=== PATIENT | male | born 1965 | race Caucasian/White ===

== ENCOUNTER 2017-06-12 19:28 | Emergency (ER) | payer MEDICAID ==
--- NOTE | 2017-06-12 19:59 | EDM.PDOC ---
ED HPI GENERAL MEDICAL PROBLEM - General Chief Complaint: General Stated Complaint: suture site lump Time Seen by Provider: 06/12/17 19:35 Source of Information: Reports: Patient History Limitations: Reports: No Limitations - History of Present Illness INITIAL COMMENTS - FREE TEXT/NARRATIVE: patient was injured by machinery at work on 06/07/17. Sutures and x-ray performed at [facility]. Placed on Keflex. He presents today with a lump to the arm. No redness, no fever, no inflammation. He does state that it is painful. Began swelling two days ago, today it became painful. Onset: Gradual Location: Reports: Upper Extremity, Right Quality: Reports: Ache, Pressure Severity: Moderate Improves with: Reports: None Worsens with: Reports: None Associated Symptoms: Reports: No Other Symptoms Right Arm Pain Score (Numeric/FACES): 6 - Related Data Allergies Allergy/AdvReac Type Severity Reaction Status Date / Time No Known Allergies Allergy Verified 06/12/17 19:35 Home Meds: Home Meds Cephalexin [Cephalexin] 1 tab PO TID 06/12/17 [History] Past Medical History - Past Health History Medical/Surgical History: Denies Medical/Surgical History Social & Family History - Tobacco Use Smoking Status *Q: Current Every Day Smoker Years of Tobacco use: 35 Packs/Tins Daily: 1 ED ROS GENERAL - Review of Systems Review Of Systems: See Below Constitutional: Reports: No Symptoms HEENT: Reports: No Symptoms Respiratory: Reports: No Symptoms Cardiovascular: Reports: No Symptoms Endocrine: Reports: No Symptoms GI/Abdominal: Reports: No Symptoms : Reports: No Symptoms Musculoskeletal: Reports: No Symptoms Skin: Reports: No Symptoms Neurological: Reports: No Symptoms Psychiatric: Reports: No Symptoms Hematologic/Lymphatic: Reports: No Symptoms Immunologic: Reports: No Symptoms ED EXAM, GENERAL - Physical Exam Exam: See Below Exam Limited By: No Limitations General Appearance: Alert, WD/WN, No Apparent Distress Respiratory/Chest: No Respiratory Distress, Lungs Clear Cardiovascular: Normal Peripheral Pulses, Regular Rate, Rhythm Extremities: Normal Inspection, Normal Range of Motion, No Pedal Edema. No: Increased Warmth, Redness Psychiatric: Normal Affect, Normal Mood Skin Exam: Wound/Incision (sutured laceration to right forearm. Sutures intact , large protrusion subdermally, no redness, no warmth) Course - Vital Signs Last Recorded V/S: Last Vital Signs Temp 35.7 C 06/12/17 19:36 Pulse 84 06/12/17 19:36 Resp 16 06/12/17 19:36 BP 131/71 06/12/17 19:36 Pulse Ox 99 06/12/17 19:36 - Orders/Labs/Meds Orders: Active Orders 24 hr Category Date Time Status Elbow 2V Rt [CR] Stat Exams 06/12/17 19:38 Ordered CULTURE WOUND + SMEAR [RM] Stat Lab 06/12/17 19:50 Uncollected - Re-Assessments/Exams Free Text/Narrative Re-Assessment/Exam: 06/12/17 20:16 Using sterile technique, the site was cleaned, draped, and an 11 blade scalpel used to agata the area. Serosanguinous fluid was released. Culture was obtained and sent to lab for evaluation. Patient tolerated without difficulty. Dressing applied. Skin intact. Departure - Departure Time of Disposition: 20:10 Disposition: Home, Self-Care 01 Condition: Good Clinical Impression: Spontaneous hematoma of forearm - Discharge Information Instructions: Wound Infection, [id number], Laceration Care, Adult, Easy-to- Read Forms: ED Department Discharge Additional Instructions: Follow up with your primary doctor for any other symptoms from your incision. You had a collection of fluid consisting of blood and inflammatory fluids that your body produces. It does not look infected at this time. A culture was obtained and we will notify you if the antibiotic you are on does not cover the bacteria you have Finish your whole course of antibiotic Continue to keep clean and dry Please call with any questions or concerns - Problem List & Annotations (1) Spontaneous hematoma of forearm SNOMED Code(s): 007193759 Code(s): R23.3 - SPONTANEOUS ECCHYMOSES Status: Acute Priority: Low - Problem List Review Problem List Initiated/Reviewed/Updated: Yes - My Orders Last 24 Hours: My Active Orders 06/12/17 19:38 Elbow 2V Rt [CR] Stat 06/12/17 19:50 CULTURE WOUND + SMEAR [RM] Stat - Assessment/Plan Last 24 Hours: My Active Orders 06/12/17 19:38 Elbow 2V Rt [CR] Stat 06/12/17 19:50 CULTURE WOUND + SMEAR [RM] Stat Assessment:: hematoma of forearm right Plan: Follow up with your primary doctor for any other symptoms from your incision. You had a collection of fluid consisting of blood and inflammatory fluids that your body produces. It does not look infected at this time. A culture was obtained and we will notify you if the antibiotic you are on does not cover the bacteria you have Finish your whole course of antibiotic Continue to keep clean and dry Please call with any questions or concerns
== END 2017-06-12 20:15 | disposition home or self-care (01) ==
LOC: VM.ED 19:28
DX: M79.81 Nontraumatic hematoma of soft tissue (principal)
CPT/HCPCS: 10140; 73070-RT; 87070; 87205; 99283; 99283-GF-25

== ENCOUNTER 2019-04-23 19:54 | Emergency (ER) | payer MEDICAID ==
[2019-04-23] MEDS ORDERED: Take Home: Amoxicillin 875 MG Tab, 2 Tab Pack PO ONE (20:23)
--- NOTE | 2019-04-24 07:39 | EDM.PDOC ---
ED HPI GENERAL MEDICAL PROBLEM - General Chief Complaint: ENT Problem Stated Complaint: Sore and ? foreign body in gum Time Seen by Provider: 04/23/19 20:20 Source of Information: Reports: Patient History Limitations: Reports: No Limitations - History of Present Illness INITIAL COMMENTS - FREE TEXT/NARRATIVE: Pt. presents to ER with complaints to pain to his R upper gums. Pt. states that he wears dentures and states that he has progressively been experiencing increased discomfort, redness, and swelling where his upper dentures are rubbing on his gums. He states that the redness and swelling increased significantly over the past several days. Denies any fever or chills. Onset: Today Location: Reports: Face Right upper gum Pain Score (Numeric/FACES): 8 - Related Data Allergies Allergy/AdvReac Type Severity Reaction Status Date / Time No Known Allergies Allergy Verified 04/23/19 20:33 Home Meds: Home Meds . [No Known Home Meds] 04/23/19 [History] Past Medical History - Past Health History Medical/Surgical History: Denies Medical/Surgical History - Past Surgical History HEENT Surgical History: Reports: Oral Surgery ED ROS GENERAL - Review of Systems Review Of Systems: See Below Constitutional: Reports: No Symptoms HEENT: Reports: Dental Pain Respiratory: Reports: No Symptoms Cardiovascular: Reports: No Symptoms Endocrine: Reports: No Symptoms GI/Abdominal: Reports: No Symptoms : Reports: No Symptoms Musculoskeletal: Reports: No Symptoms Skin: Reports: No Symptoms Neurological: Reports: No Symptoms Psychiatric: Reports: No Symptoms Hematologic/Lymphatic: Reports: No Symptoms Immunologic: Reports: No Symptoms ED EXAM, GENERAL - Physical Exam Exam: See Below Exam Limited By: No Limitations General Appearance: Alert, WD/WN, No Apparent Distress Throat/Mouth: Other (ulceration to R upper gums. Surrounding erythema noted to the area with no discharge. ) Head: Atraumatic, Normocephalic Course - Vital Signs Last Recorded V/S: Last Vital Signs Temp 37.1 C 04/23/19 20:00 Pulse 81 04/23/19 20:00 Resp 16 04/23/19 20:00 BP 105/68 04/23/19 20:00 Pulse Ox - Orders/Labs/Meds Meds: Medications Discontinued Medications Generic Name Dose Route Start Last Admin Trade Name Freq PRN Reason Stop Dose Admin Amoxicillin 1 packet 04/23/19 20:23 04/23/19 20:35 Take Home: Amoxicillin 875 Mg Tab, 2 Tab Pack PO 04/23/19 20:24 1 packet ONETIME ONE Administration Departure - Departure Time of Disposition: 20:40 Disposition: Home, Self-Care 01 Condition: Good Clinical Impression: Gum inflammation - Discharge Information Referrals: PCP,None [Primary Care Provider] - Forms: ED Department Discharge Additional Instructions: Follow-up with [facility] to have your dentures adjusted. Amoxicillin 875mg twice daily for 10 days Keep the dentures out of your mouth. Do not dig around in the gums with toothpicks. Ibuprofen 200mg 3 tablets every 6 hours for pain/swelling. - Problem List Review Problem List Initiated/Reviewed/Updated: Yes - Assessment/Plan Plan: Follow-up with [facility] to have your dentures adjusted. Amoxicillin 875mg twice daily for 10 days Keep the dentures out of your mouth. Do not dig around in the gums with toothpicks. Ibuprofen 200mg 3 tablets every 6 hours for pain/swelling.
== END 2019-04-23 20:40 | disposition home or self-care (01) ==
LOC: VM.ED 19:54
DX: K05.10 Chronic gingivitis, plaque induced (principal)
CPT/HCPCS: 99282; A9270-GY

== ENCOUNTER 2021-07-06 16:20 | Emergency (ER) | payer BC ==
[2021-07-06] MEDS ORDERED: Ibuprofen 200 MG Tab PO STA (16:36)
--- NOTE | 2021-07-06 16:42 | EDM.PDOC ---
ED [facility] GENERAL MEDICAL PROBLEM - General Chief Complaint: Upper Extremity Injury/Pain Stated Complaint: WRIST INJURY Time Seen by Provider: 07/06/21 16:37 Source of Information: Reports: Patient History Limitations: Reports: No Limitations - History of Present Illness INITIAL COMMENTS - FREE TEXT/NARRATIVE: Patient comes emergency department today with complaints of right knuckle pain on his right hand. The patient noticed about 2 weeks ago on his right knuckle of the third finger of the right hand at the MPJ he has some pain and swelling. He had no injury or trauma or breaks in the skin. The pain has gotten slowly worse over the past 2 weeks it is gotten more swollen and red. It is constant pain. Does not get better in the morning or worse during the day. He has had no fever or chills. He has had similar episodes to this in the past where it was an infection that started spontaneously. He has no fever or chills. No paresthesias of the right hand. He has not tried anything for pain. Right Hand Pain Score (Numeric/FACES): 10 - Related Data Allergies Allergy/AdvReac Type Severity Reaction Status Date / Time No Known Allergies Allergy Verified 07/06/21 16:39 Home Meds: Home Meds cephALEXin [Cephalexin] 500 mg PO QID #28 tablet 07/06/21 [Rx] Past Medical History - Past Health History Medical/Surgical History: Denies Medical/Surgical History - Past Surgical History HEENT Surgical History: Reports: Oral Surgery Review of Systems - Review of Systems Review Of Systems: Comprehensive ROS is negative, except as noted in HPI. 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 No other signs of infection or pathology. ). No: Normal Inspection (Examination of the right hand. At the right MPJ on the dorsum of the hand there is redness swelling warth. He has limited minimal flexion at that joint. Rest flexion and extension approriate. CMS otherwise normal. ) Psychiatric: Normal Affect, Normal Mood Skin Exam: Warm, Dry, Intact, Normal Color Course - Vital Signs Last Recorded V/S: Last Vital Signs Temp 99.3 F 07/06/21 16:25 Pulse 75 07/06/21 16:25 Resp 18 07/06/21 16:25 BP 131/83 07/06/21 16:25 Pulse Ox 98 07/06/21 16:25 - Orders/Labs/Meds Orders: Active Orders 24 hr Category Date Time Status Hand Comp Min 3V Rt [CR] Stat Exams 07/06/21 16:35 Taken Meds: Medications Discontinued Medications Generic Name Dose Route Start Last Admin Trade Name Alexander PRN Reason Stop Dose Admin Cephalexin 1 packet 07/06/21 17:38 07/06/21 17:46 Take Home: Cephalexin 500 Mg Cap, 4 Cap Pack PO 07/06/21 17:39 1 packet ONETIME ONE Administration Diphtheria/Tetanus/Acell Pertussis 0.5 ml 07/06/21 17:38 07/06/21 17:47 Diphtheria,Pertussis(Acell),Tetanus Vaccine 0.5 Ml Syringe IM 07/06/21 17:39 0.5 ml .ONCE ONE Administration Ibuprofen 600 mg 07/06/21 16:36 07/06/21 16:43 Ibuprofen 200 Mg Tab PO 07/06/21 16:37 600 mg NOW STA Administration - Radiology Interpretation Free Text/Narrative:: X-ray of the right hand initially reviewed extemporaneously by myself. Shows no acute fracture or dislocation. There is some generalized osteoarthritic changes. X-ray per radiology shows no evidence of acute fracture or dislocation. 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 Findings include joint space narrowing at the second and third MCP articulations chronic osteophyte formation arising from the dorsal aspect of the third digit with overlying soft tissue swelling. No erosive changes or AVN. REceived after the patient was discharged. - Re-Assessments/Exams Free Text/Narrative Re-Assessment/Exam: 07/06/21 I explained to the patient that I do not see any acute fracture he does have some chronic changes at the x-ray site at the same. He has multiple abrasions on his hand. My biggest concern at this time would be for the risk of infection. We will place him on Keflex 1 tablet p.o. 4 times daily for the next 7 days. If he is not improving follow-up with his primary care provider. This could be underlying acute arthritis although infection is my biggest concern at this time. Discharge directions as below are explained to the patient is comfortable this plan his questions are answered. Departure - Departure Time of Disposition: 17:39 Disposition: Home, Self-Care 01 Clinical Impression: Cellulitis of hand, right - Discharge Information Prescriptions: cephALEXin [Cephalexin] 500 mg PO QID #28 tablet Instructions: Cellulitis, Adult, [id number], Pain Medicine Instructions, [id number] Referrals: PCP,None [Primary Care Provider] - Forms: ED Department Discharge Additional Instructions: Tylenol and or Ibuprofen as needed for pain. Ice to the area on the hand as well. Cephalexin 1 capsule 4 times a day for the next 7 days. Starter pack from the ED given and RX sent to [facility]. Return to the ED if new or worsening symptoms. Follow up in the clinic in 1 week if not improving sooner if worse. Sepsis Event Note (ED) - Focused Exam Vital Signs: Vital Signs Temp Pulse Resp BP Pulse Ox 07/06/21 16:25 99.3 F 75 18 131/83 98 - My Orders Last 24 Hours: My Active Orders 07/06/21 16:35 Hand Comp Min 3V Rt [CR] Stat - Assessment/Plan Last 24 Hours: My Active Orders 07/06/21 16:35 Hand Comp Min 3V Rt [CR] Stat
[2021-07-06] MEDS ORDERED: Take Home: Cephalexin 500 MG Cap, 4 Cap Pack PO ONE (17:38)
[2021-07-06] MEDS ORDERED: Diphtheria,Pertussis(Acell),Tetanus Vaccine 0.5 ML Syringe IM ONE (17:38)
--- NOTE | 2021-07-06 20:37 | CR ---
[id number] RAD/RAD Hand Right 3V Exam: RAD Hand Right 3V Indication:3RD MPJ SWELLING, REDNESS, PAIN Comparison: No prior imaging for comparison. Discussion/Impression: No evidence of an acute fracture or dislocation. 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 Findings include joint space narrowing at the 2nd and 3rd MCP articulations. Chronic osteophyte formation arising from the dorsal aspect of the 3rd digit with overlying soft tissue swelling. No erosive changes or AVN. Juan Tristan MD 07/06/212034 Thank you for allowing us to participate in the care of your patient.
== END 2021-07-06 17:53 | disposition home or self-care (01) ==
LOC: VM.ED 16:20
DX: L03.113 Cellulitis of right upper limb (principal); Z23 Encounter for immunization
CPT/HCPCS: 73130-RT; 90471; 90715; 99283; 99284-25; A9270-GY

== ENCOUNTER 2023-10-02 15:20 | Emergency (ER) | payer BC | END 2023-10-02 15:35 | disposition home or self-care (01) | LOC: VM.ED 15:20 | DX: K04.7 Periapical abscess without sinus (principal) | CPT/HCPCS: 99282; 99283 ==

== ENCOUNTER 2024-10-27 11:52 | Emergency (ER) | payer BC | END 2024-10-27 12:54 | disposition home or self-care (01) | LOC: VM.ED 11:52 | DX: L03.116 Cellulitis of left lower limb (principal) | CPT/HCPCS: 99283 ==

== ENCOUNTER 2025-07-02 23:10 | Emergency (ER) | payer SELFPAY | END 2025-07-03 00:27 | disposition home or self-care (01) | LOC: VM.ED 23:10 | DX: K08.89 Other specified disorders of teeth and supporting structures (principal) | CPT/HCPCS: 64400; 99282; J0665 ==